=== PATIENT | female | born 1945 | race African-American/Black ===

== ENCOUNTER 2017-10-22 08:46 | Emergency (ER) | payer BC, MEDICARE ==
[~2017-10-22] VITALS: Ht 154.9 cm; Wt 75.0 kg
[~2017-10-22 08:46] MED LIST: AMOX875T20 PO; Z.0.NO CURRENT MEDS
[2017-10-22 08:50] VITALS: BP 130/86; PULSE 70; RESP 16; TEMP 98.8; O2SAT 100
== END 2017-10-22 11:30 | disposition left against medical advice (07) ==
LOC: NED 08:46
DX: R29.91 Unspecified symptoms and signs involving the musculoskeletal system (principal)
CPT/HCPCS: 99281